=== PATIENT | female | born 1960 | race Caucasian/White ===

== ENCOUNTER 2017-08-09 19:25 | Emergency (ER) ==
[2017-08-09 19:36] VITALS: BP 127/56; TEMP 97.5; BMI 20.8
[2017-08-09] MEDS ORDERED: MORPHINE 2 MG/ML SYRINGE IM STA (19:53)
[2017-08-09] MEDS ORDERED: PHENERGAN 25 MG/ML VIAL IM STA (19:54)
--- NOTE | 2017-08-09 20:03 | ED.PDOC ---
General ED Provider: Dr. ALBERTO GRAVES-ER Chief Complaint: Wrist Pain/Injury Stated Complaint: i fell on my hand--my wrist hurts Time Seen by Physician: 19:30 Mode of Arrival: Walk-In Information Source: Patient Exam Limitations: No limitations Nursing and Triage Documentation Reviewed and Agree: Yes Reviewed sepsis parameters & appropriate labs ordered?: Yes System Inflammatory Response Syndrome: Not Applicable Sepsis Protocol: For patient's 13 years and over: Temp is 96.8 and below OR 101 and greater Pulse >90 BPM Resp >20/minute Acutely Altered Mental Status Are patient's symptoms suggestive of a new infection, such as: -Pneumonia -Skin, Soft Tissue -Endocarditis -UTI -Bone, Joint Infection -Implantable Device -Acute Abdominal Infection -Wound Infection -Meningitis -Blood Stream Catheter Infection -Unknown Musculoskeletal Complaint Exam - Hand/Wrist Complaint/Exam Location of Pain: Reports: Left, Wrist Mechanism of Injury: Reports: Trauma Onset/Duration: one hour Symptoms Are: Still present Onset of Pain: Reports: Immediate Initial Severity: Mild Current Severity: Moderate Location: Reports: Discrete (right wrist) Character: Reports: Dull, Throbbing Aggravating: Reports: Movement Associated Signs and Symptoms: Reports: Swelling Dominant Hand: Right Hand/Wrist Findings: Present: Swelling, Abnormal contour Tenderness: Present: Radius, Ulna Compartment Syndrome Risk Factors: Present: Pain Differential Diagnoses: Closed Fracture, Sprain, Strain Review of Systems - Review Of Systems Constitutional: Reports: No symptoms Eyes: Reports: No symptoms Ears, Nose, Mouth, Throat: Reports: No symptoms Respiratory: Reports: No symptoms Cardiac: Reports: No symptoms GI: Reports: No symptoms : Reports: No symptoms Musculoskeletal: Reports: Joint pain, Joint swelling, Muscle pain Skin: Reports: No symptoms Neurological: Reports: No symptoms Endocrine: Reports: No symptoms Hematologic/Lymphatic: Reports: No symptoms All Other Systems: Reviewed and Negative Past Medical History - Past Medical History Previously Healthy: Yes Endocrine: Reports: Unknown Cardiovascular: Reports: Unknown Respiratory: Reports: Unknown Hematological: Reports: Unknown Gastrointestinal: Reports: Unknown Genitourinary: Reports: Unknown Neuro/Psych: Reports: Unknown Musculoskeletal: Reports: Unknown Cancer: Reports: Unknown Last Menstrual Period: unknown - Surgical History General Surgical History: Reports: Unknown - Family History Family History: Reports: Unknown - Social History Smoking Status: Current every day smoker, Light tobacco smoker Hx Substance Use: No Alcohol Screening: None Physical Exam - Physical Exam Appearance: Well-appearing, No pain distress, Well-nourished Pain Distress: Moderate Eyes: NAYELI, EOMI, Conjunctiva clear ENT: Ears normal, Nose normal, Oropharynx normal Neck: Supple Respiratory: Airway patent Cardiovascular: RRR, Pulses normal, No rub, No murmur GI/: Soft, Nontender, No masses, Bowel sounds normal, No Organomegaly Musculoskeletal: Limited ROM Skin: Warm, Dry, Normal color Neurological: Sensation intact Psychiatric: Affect appropriate Interpretation - Radiology Interpretation Radiology Interpretation By: ED Physician Radiology Results: Positive Procedures - Splinting Location: distal wrist fx Hand-Made Type: Orthoglass Splint: Sugar-tong Pre-Proc Neuro Vasc Exam: Normal Post-Proc Neuro Vasc Exam: Normal Re-Evaluation - Re-Evaluation Time of Re-Evaluation: 20:22 Status: Improved Vital Signs Stable: Yes Pain Level: 0 Appearance: NAD Lungs: Clear Skin: Warm and Dry Neuro: Alert and Oriented X3 CV: RRR Additional Comments: she is intact distal to the injury from the neurovascular standpoint Critical Care Note - Critical Care Note Total Time (mins): 0 Course - Course Orders, Labs, Meds: Orders Category Date Time Status Splint [ED SPLINT APPLICATION] .ONCE EMERGENCY 08/09/17 20:00 Active Morphine Sulfate [Morphine 2 mg/ml Syringe] MEDS 08/09/17 19:53 Discontinued 4 mg IM ONCE STA Promethazine HCl [Phenergan 25 mg/ml Vial] MEDS 08/09/17 19:54 Discontinued 25 mg IM ONCE STA WRIST, LEFT 3 VIEWS Stat RADS 08/09/17 19:39 Completed Medications Discontinued Medications Generic Name Dose Route Start Last Admin Trade Name Sabina PRN Reason Stop Dose Admin Morphine Sulfate 4 mg 08/09/17 19:53 08/09/17 20:11 Morphine 2 Mg/Ml Syringe IM 08/09/17 19:54 4 mg ONCE STA Administration Promethazine HCl 25 mg 08/09/17 19:54 08/09/17 20:03 Phenergan 25 Mg/Ml Vial IM 08/09/17 19:55 25 mg ONCE STA Administration spoke to dr fuller production cloth cutter--he suggested reducing the fx and if not able see him in the walk in clinc tomorrow--i attemped a reduction but she did not tolerate it--i explained the importance of following up with ortho walk in clinic tomorrow Vital Signs: Temp Pulse Resp BP Pulse Ox 08/09/17 19:28 97.5 F L 56 L 20 127/56 L 98 Departure - Departure Time of Disposition: 20:24 Disposition: HOME SELF-CARE Discharge Problem: Wrist fracture, left Qualifiers: Encounter type: initial encounter Fracture type: closed Qualified Code(s): S62.102A - Fracture of unspecified carpal bone, left wrist, initial encounter for closed fracture Instructions: Wrist Fracture in Adults (ED) Condition: Good Pt referred to PMD for follow-up: Yes Additional Instructions: norco 7.5mg q 4hrs prn pain #15--keep in splint and elevated tonight on pillows- -f/u with ortho walk in clinic tomorrow per dr fuller Allergies/Adverse Reactions: Allergies erythromycin base Adverse Reaction (Verified 08/09/17 19:34) Home Medications: Ambulatory Orders 1 [No Reported Medications] 08/09/17 Disposition Discussed With: Patient, Family
--- NOTE | 2017-08-09 20:22 | DI ---
EXAM: Left wrist three views HISTORY: Fall COMPARISON: None. FINDINGS: There is an impacted comminuted fracture involving the the distal radius. There is dorsal angulation of the distal fracture fragment. There is surrounding soft tissue swelling. IMPRESSION: Impacted comminuted distal radial fracture with surrounding soft tissue swelling.
== END 2017-08-09 21:15 | disposition home or self-care (01) ==
LOC: ED 19:25
DX: S62.102A Fracture of unspecified carpal bone, left wrist, initial encounter for closed fracture (principal); F17.210 Nicotine dependence, cigarettes, uncomplicated; W19.XXXA Unspecified fall, initial encounter
CPT/HCPCS: 96372; 99283